=== PATIENT | male | born 1990 | race Caucasian/White ===

== ENCOUNTER 2017-04-12 22:16 | Emergency (ER) | payer OTHER ==
[2017-04-12 22:25] VITALS: BP 116/61; BMI 21.6
--- NOTE | 2017-04-12 23:45 | DR.GENAD ---
HPI - PCP Primary Care Physician: NFD - Complaint/Symptoms Chief Complaint Doctors Comments: Patient is hear to get excuse for work since he has missed three days. 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 Patient had no symptoms vital signs were normal. He was told that I could not just give him an excuse for being off from work when he was not ill. Chief Complaint:: PT STATES" I BEEN FEELING BAD AND I HAVE MISSED 2 DAYS OF WORK I DON'T FEEL LIKE I WILL BE BETTER IN THE MORNING SO I CAME HERE" - Source History Provided: Patient - Mode of Arrival Mode of Arrival: Ambulatory - Timing Onset of Chief Complaint: 04/11/17 PMH - PMH Past Medical History: No Past Surgical History: No - Family History History of Family Medical Conditions: Yes Family Medical History: Diabetes Mellitus, Hypertension - Social History Type of Tobacco Use: Cigarettes Alcohol Use: Occasionally Do you use any recreational Drugs:: No Lives With: Family Lives Where: Home - infectious screening In the last 2 months have you had wt loss of >10#?: NO Have you had fever, night sweats or hemotysis?: No Have you traveled outside the country in the last 6 months?: No Isolation: Standard PE - Vital Signs Vitals: Temperature 99.4 F Pulse Rate 69 Respiratory Rate 18 Blood Pressure 116/61 O2 Sat by Pulse Oximetry 100 - Diagnosis Discharge Problem: Encounter to obtain excuse from work - Discharge Plan Condition: Stable - Follow ups/Referrals Follow ups/Referrals: NFD,None [Primary Care Provider] - 3 days - Instructions
== END 2017-04-12 23:42 | disposition home or self-care (01) ==
LOC: ER 22:16
DX: Z76.89 Persons encountering health services in other specified circumstances (principal)
CPT/HCPCS: 99281; 99282